=== PATIENT | male | born 1965 | race Caucasian/White ===

== ENCOUNTER 2016-12-16 21:30 | Emergency (ER) | payer OTHER ==
[~2016-12-16] VITALS: Ht 180.3 cm; Wt 74.5 kg
[2016-12-16] MEDS ORDERED: OMEP-110 PO (22:14)
[2016-12-16] MEDS ORDERED: MORP15TA39 PO (22:14)
[2016-12-16] MEDS ORDERED: HYDR-3307 PO (22:14)
[2016-12-16] MEDS ORDERED: TAMS-11 PO (22:14)
[2016-12-16] MEDS ORDERED: ZOLP10TA PO (22:14)
[2016-12-16] MEDS ORDERED: AMLO10TA2 PO (22:14)
[2016-12-16] MEDS ORDERED: CARV6.2512 PO (22:14)
[2016-12-16] MEDS ORDERED: ATOR40TA PO (22:14)
[2016-12-16] MEDS ORDERED: MORPHINE SULFATE 4 MG/ML, 1ML ONE (22:45)
[2016-12-16] MEDS ORDERED: ONDANSETRON 2MG/ML, 2ML ONE (22:45)
[2016-12-16] MEDS ORDERED: DIAZEPAM 5 MG/ML, 2ML ONE (22:45)
[2016-12-16] MEDS ORDERED: SODIUM CHLORIDE 0.9% 1,000ML IVBOLUS ONE (23:00)
[2016-12-16] MEDS ORDERED: DIAZEPAM 5 MG/ML, 2ML IVPush ONE (23:00)
[2016-12-16] MEDS ORDERED: MORPHINE SULFATE 4 MG/ML, 1ML IVPush PRN (23:00)
[2016-12-16] MEDS ORDERED: ONDANSETRON 2MG/ML, 2ML IVPush ONE (23:00)
[2016-12-16] MEDS ORDERED: SODIUM CHLORIDE FLUSH 10ML SYR IVF ONE (23:00)
[2016-12-16 23:25] LABS: BLOOD UREA NITROGEN 16 mg/dL (7-18)
[2016-12-16] MEDS ORDERED: POTASSIUM CHLORIDE 20 MEQ TAB.ER.PRT ONE (23:48)
[2016-12-16 23:51] VITALS: BP 100/62
[2016-12-17] MEDS ORDERED: POTASSIUM CHLORIDE 20 MEQ TAB.ER.PRT PO ONE
== END 2016-12-17 00:16 | disposition home or self-care (01) ==
LOC: ED 23:59
DX: E86.0 Dehydration (principal); G44.219 Episodic tension-type headache, not intractable; E87.6 Hypokalemia; E87.1 Hypo-osmolality and hyponatremia
CPT/HCPCS: 36415; 80048; 82040; 93005; 96361; 96374; 96375; 99285; J2405; J3360; J7030

== ENCOUNTER → 2017-05-15 | Outpatient (CLI) | payer BC ==
[~2017-05-15] MED LIST: AMLO10TA2 PO; ATOR40TA PO; CARV6.2512 PO; HYDR-3307 PO; MORP-52 PO; OMEP-110 PO; TAMS-11 PO; ZOLP10TA PO
== END | disposition home or self-care (01) ==
LOC: CFH 08:23
PROVIDERS: ATTEND Internal Medicine Cardiovascular Disease
DX: R07.89 Other chest pain (principal); I10 Essential (primary) hypertension
CPT/HCPCS: 78452; 93017; 93306; A9502

== ENCOUNTER → 2017-06-06 | Outpatient (CLI) | payer BC ==
[~2017-06-06] MED LIST changes: +OMNIPAQUE 350 MG/ML, 100ML BOTTLE ONE
== END | disposition home or self-care (01) ==
LOC: CFH 09:03
PROVIDERS: ATTEND Nurse Practitioner Family
DX: R07.89 Other chest pain (principal); I26.99 Other pulmonary embolism without acute cor pulmonale
CPT/HCPCS: 71275; 82565; Q9967

== ENCOUNTER → 2017-07-05 | Outpatient (CLI) | payer BC ==
[~2017-07-05] MED LIST changes: -OMNIPAQUE 350 MG/ML, 100ML BOTTLE ONE
== END ==
LOC: CARD 13:56
PROVIDERS: ATTEND Internal Medicine Cardiovascular Disease
DX: Z02.9 Encounter for administrative examinations, unspecified (principal)